=== PATIENT | male | born 1945 | race Caucasian/White ===

== ENCOUNTER 2024-07-03 09:28 | Day surgery (SDC) | payer MEDICARE, SELFPAY ==
[2024-06-27 12:11] VITALS: BMI 26.3
[2024-07-03 09:58] VITALS: BP 155/105; PULSE 49; RESP 15; TEMP 36.7; O2SAT 98
--- NOTE | 2024-07-03 10:10 | HO.ANESPROP2 ---
Documented by User: Huyen Snow NP 06/29/24 14:45 HPI - Anesthesia Eval Consult details Narrative: 79yo M for Right Cataract Extraction IOL Insertion, Trabeculectomy No previous on record Eliquis for afib PMFSH Past Medical History Medical History (Updated 06/27/24 @ 12:07 by Akua Salazar RN) TIA (transient ischemic attack) Neuropathy of foot PAF (paroxysmal atrial fibrillation) HTN (hypertension) Hyperlipidemia Wears hearing aid Gout Chronic renal insufficiency BPH (benign prostatic hyperplasia) Barretts esophagus AAA (abdominal aortic aneurysm) without rupture Surgical History Surgical History (Updated 06/27/24 @ 12:06 by Akua Salazar RN) Hx of kidney transplant H/O colonoscopy Social History Social History Patient Tobacco Use Status: Former Tobacco user Tobacco use type: Cigarette Use of substances other than those prescribed or required for medical reasons: No Congregational Healthcare Practices: [facility] Advance Directives: No (unknown) Advance Directives Information Provided: Yes Nutrition Risks: Surgical patient >75years Meds Allergies Allergy/AdvReac Type Severity Reaction Status Date / Time meperidine [Demerol] Allergy Intermediate Itching Verified 06/27/24 12:11 Home Medications ?Medication ?Instructions ?Recorded ?Confirmed ?Last Taken ?Type amlodipine 5 mg tablet 10 mg PO DAILY 06/27/24 06/27/24 07/03/24 08:30 History apixaban 5 mg tablet (Eliquis) 5 mg PO BID 06/27/24 06/27/24 07/03/24 08:30 History atorvastatin 20 mg tablet 20 mg PO DAILY 06/27/24 06/27/24 Unknown History cholecalciferol (vitamin D3) 50 50 mcg PO DAILY 06/27/24 06/27/24 Unknown History mcg (2,000 unit) capsule (Vitamin D3) cinacalcet 30 mg tablet 60 mg PO DAILY 06/27/24 06/27/24 07/03/24 08:30 History metoprolol succinate 25 mg 50 mg PO DAILY 06/27/24 06/27/24 Unknown History tablet,extended release 24 hr ropinirole 1 mg tablet 1 mg PO BEDTIME 06/27/24 06/27/24 Unknown History sildenafil 100 mg tablet 100 mg PO DAILY PRN Erectile 06/27/24 06/27/24 Unknown History Dysfunction spironolactone 25 mg tablet 25 mg PO QAM 06/27/24 06/27/24 Unknown History tacrolimus 1 mg capsule, 1 mg PO BID 06/27/24 06/27/24 07/03/24 08:30 History immediate-release tamsulosin 0.4 mg capsule 0.4 mg PO DAILY 06/27/24 06/27/24 Unknown History trazodone 50 mg tablet 50 mg PO BEDTIME 06/27/24 06/27/24 Unknown History empagliflozin 10 mg tablet 10 mg PO DAILY 06/30/24 06/30/24 06/29/24 History (Jardiance) Exam Height,Weight and Vital Signs: Height 5 ft 11.77 in Weight 87.5 kg Assessment and Plan Assessment Anesthesia Assessment: Chart Reviewed Documented by User: Ambar Downing DO 07/03/24 10:24 [facility] Past Medical History Medical History (Updated 06/27/24 @ 12:07 by Akua Salazar RN) TIA (transient ischemic attack) Neuropathy of foot PAF (paroxysmal atrial fibrillation) HTN (hypertension) Hyperlipidemia Wears hearing aid Gout Chronic renal insufficiency BPH (benign prostatic hyperplasia) Barretts esophagus AAA (abdominal aortic aneurysm) without rupture Family History Family history of problems with anesthesia: No Surgical History Surgical History (Updated 06/27/24 @ 12:06 by Akua Salazar RN) Hx of kidney transplant H/O colonoscopy History of Problems with Anesthesia: No Social History Social History Patient Tobacco Use Status: Former Tobacco user Tobacco use type: Cigarette Use of substances other than those prescribed or required for medical reasons: No [facility]regational Healthcare Practices: [facility] Advance Directives: No (unknown) Advance Directives Information Provided: Yes Nutrition Risks: Surgical patient >75years Meds Allergies Allergy/AdvReac Type Severity Reaction Status Date / Time meperidine [Demerol] Allergy Intermediate Itching Verified 06/27/24 12:11 Home Medications ?Medication ?Instructions ?Recorded ?Confirmed ?Last Taken ?Type amlodipine 5 mg tablet 10 mg PO DAILY 06/27/24 06/27/24 07/03/24 08:30 History apixaban 5 mg tablet (Eliquis) 5 mg PO BID 06/27/24 06/27/24 07/03/24 08:30 History atorvastatin 20 mg tablet 20 mg PO DAILY 06/27/24 06/27/24 Unknown History cholecalciferol (vitamin D3) 50 50 mcg PO DAILY 06/27/24 06/27/24 Unknown History mcg (2,000 unit) capsule (Vitamin D3) cinacalcet 30 mg tablet 60 mg PO DAILY 06/27/24 06/27/24 07/03/24 08:30 History metoprolol succinate 25 mg 50 mg PO DAILY 06/27/24 06/27/24 Unknown History tablet,extended release 24 hr ropinirole 1 mg tablet 1 mg PO BEDTIME 06/27/24 06/27/24 Unknown History sildenafil 100 mg tablet 100 mg PO DAILY PRN Erectile 06/27/24 06/27/24 Unknown History Dysfunction spironolactone 25 mg tablet 25 mg PO QAM 06/27/24 06/27/24 Unknown History tacrolimus 1 mg capsule, 1 mg PO BID 06/27/24 06/27/24 07/03/24 08:30 History immediate-release tamsulosin 0.4 mg capsule 0.4 mg PO DAILY 06/27/24 06/27/24 Unknown History trazodone 50 mg tablet 50 mg PO BEDTIME 06/27/24 06/27/24 Unknown History empagliflozin 10 mg tablet 10 mg PO DAILY 06/30/24 06/30/24 06/29/24 History (Jardiance) Exam Exam Date and Time: 07/03/24 1010 Height,Weight and Vital Signs: Height 5 ft 11.77 in Weight 87.5 kg Vital Signs Temperature 98.0 F 07/03/24 09:58 Pulse Rate 49 L 07/03/24 09:58 Respiratory Rate 15 07/03/24 09:58 Blood Pressure 155/105 H 07/03/24 09:58 Pulse Oximetry 98 07/03/24 09:58 Oxygen Delivery Method Room Air 07/03/24 09:58 Temperature 98.0 F 07/03/24 09:58 Pulse Rate 49 L 07/03/24 09:58 Respiratory Rate 15 07/03/24 09:58 Blood Pressure 155/105 H 07/03/24 09:58 Pulse Oximetry 98 07/03/24 09:58 Oxygen Delivery Method Room Air 07/03/24 09:58 Airway Mallampati Class: II TM Dist: >3cm Neck ROM: Full Partial: Upper (bridge; not removeable) Heart: S1S2 Lungs: CTAB Assessment and Plan Assessment Anesthesia Assessment: Anesthesia Plan Discussed and Chart Reviewed Final Anesthetic Review Family History of Problems with Anesthesia: No History of Problems with Anesthesia: No NPO: Yes ASA Class: II Final Preanesthetic Review: No Changes in Pt Med Stat, Meds/Allgs Chart Reviewed, Consent Obtained/Reviewed and Anes Risks/Benef Reviewed Patient Risk: Low Procedure Risk: Low Anesthetic Plan Anesthetic Plan: MAC: and Agree w/ Assess. and Plan Disposition: Standard PACU
[2024-07-03] MEDS: Tetracaine HCl/PF 0.5% Oph Sol 4 ML DROPS 1 DROP EYE-RIGHT (10:14)
[2024-07-03] MEDS: Cyclopentolate 1 % Ophth Sol 2 ML DRPBTL 1 DROP EYE-RIGHT ×3 (10:16→10:28)
[2024-07-03] MEDS: Tropicamide 1 % Ophth Sol 3 ML BTL 1 DROP EYE-RIGHT ×3 (10:17→10:30)
[2024-07-03] MEDS: Ketorolac Tromethamine 0.5% Op 5 ML DROPS 1 DROP EYE-RIGHT ×3 (10:19→10:31)
[2024-07-03] MEDS: Phenylephrine HCL 2.5% Oph SoL 2 ML BOTTLE 1 DROP EYE-RIGHT ×3 (10:20→10:33)
[2024-07-03] MEDS: Lactated Ringers 500 ML 50 ML IV (10:27)
--- NOTE | 2024-07-03 11:31 | MHC.SHP ---
Pre-Procedural Eval Section A - 24 Hr Update-Section A only Date of Service: 07/03/24 The patient is an INPATIENT: No Changes since office visit: No Cold of Flu in the past 2 weeks, No New Medical Problems, No Changes in Medication and No Patient answered all questions The patient has been examined within 24 hours of the surgical procedure. The History & Physical has been completed within 30 days and I have reviewed it.: Yes Section B - Complete if H&P > 30 days Chief Complaint: Primary open-angle glaucoma, R eye, mild stage Allergies: Allergies Allergy/AdvReac Type Severity Reaction Status Date / Time meperidine [Demerol] Allergy Intermediate Itching Verified 07/03/24 10:36 Plan Diagnosis/Plan: Unchanged I have reviewed the history and physical and performed a pertinent physical examination on my patient. No changes have occurred unless specified. Time Spent With Patient Time: Total time managing care of this patient today ____ minutes.
--- NOTE | 2024-07-03 11:32 | HO.PNOPHT ---
Ophthalmology Procedure Procedure Date of Service: 07/03/24 Ophthalmology Viscoelastic: Healon Duet Dual Pack Pro Ophthalmology Lenses: IOL Acrysof MP - [id number] (17.5) Procedure Notes: PREOPERATIVE DIAGNOSIS: Decreased visual acuity right eye secondary to cataract and glaucoma. POSTOPERATIVE DIAGNOSIS: Same PROCEDURE: Right cataract extraction with intraocular lens insertion and trabeculectomy, right eye SURGEON: Andrew Nowak M.D. ANESTHESIA: Topical/MAC ESTIMATED BLOOD LOSS: None COMPLICATIONS: None After obtaining informed consent, the patient was brought to the operating room suite and placed in the supine position. After adequate sedation per anesthesia, topical drops of Tetracaine were given to the right eye. The eye was then prepped and draped in the usual sterile fashion. The operating room microscope was then positioned over the right eye and a lid speculum placed. 2% Lidocaine was instilled subconjunctivally. After awaiting 30 seconds, a paracentesis was created superiorly. Hemostasis was then achieved using wet field cautery. Mitomycin .4mg/ml was then placed in the conjunctival pocket and held in place for two minutes. The subconjunctival pocket was then irrigated copiously with 20 mls of BSS. Paracentesis was then created. Viscoelastic was then instilled into the anterior chamber. A crescent blade was then utilized to create a partial thickness sclera wound followed by advancement to clear cornea with the crescent blade. A keratome was then utilized to enter the anterior chamber. Capsulotomy forceps were then utilized to create a continuous circular tear capsulotomy. Hydrodissection and hydrodelineation were carried out until adequate mobilization of the nucleus occurred. Phacoemulsification was utilized to remove the dense central nucleus followed by removal of remnant cortical material utilizing the automated aspiration irrigation unit. Viscoelastic was then instilled into the posterior capsular bag followed by placement of a posterior chamber intraocular lens. Attention was then directed to create a trabeculectomy. A Emilia punch was then utilized to create the trabeculectomy. The residual Viscoelastic was then removed utilizing the automated IA machine. The egress of aqueous was evaluated and found to be appropriate. The conjunctiva was then closed with a 9-0 vicryl suture. BSS was then instilled into the anterior chamber creating a superior bleb, without obvious leakage. Intracameral injection of Vigamox 0.3%, 0.1 ml and subtenon injection of Kenalog-40 0.2 ml was given followed by an atropine drop. The patient tolerated the procedure well and will be followed up in the a.m.
[2024-07-03 12:27] VITALS: BP 133/90; PULSE 62; RESP 16; TEMP 36.4; O2SAT 99
== END 2024-07-03 12:37 | disposition home or self-care (01) ==
PROVIDERS: PCP Internal Medicine; Visit Provider Ophthalmology
PROC: (CPT 66985; principal; 2024-07-03 12:00)
PROC: (CPT 66170; 2024-07-03 12:00)
DX: H25.11 Age-related nuclear cataract, right eye (principal); H40.1111 Primary open-angle glaucoma, right eye, mild stage; I12.9 Hypertensive chronic kidney disease with stage 1 through stage 4 chronic kidney disease, or unspecified chronic kidney disease; N18.4 Chronic kidney disease, stage 4 (severe); Z99.2 Dependence on renal dialysis; Z94.0 Kidney transplant status; H11.153 Pinguecula, bilateral; I48.0 Paroxysmal atrial fibrillation; I71.40 Abdominal aortic aneurysm, without rupture, unspecified; E78.00 Pure hypercholesterolemia, unspecified; N40.0 Benign prostatic hyperplasia without lower urinary tract symptoms; Z86.73 Personal history of transient ischemic attack (TIA), and cerebral infarction without residual deficits; Z79.01 Long term (current) use of anticoagulants; Z79.899 Other long term (current) drug therapy; Z88.5 Allergy status to narcotic agent; Z87.891 Personal history of nicotine dependence
CPT/HCPCS: 66984; 66170; J2004; J2250; J3010; J3301; J7315; V2630

== ENCOUNTER 2024-07-10 09:09 | Day surgery (SDC) | payer MEDICARE, SELFPAY ==
--- OUTSIDE RECORDS SUMMARY | 2024-07-07 13:24 | XMS_ITS | Clinical Summary ---
Author Organization [facility] 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 Role Phone Maria Victoria Landry MD Primary Care Provide r Allergies Active Allergy Reactions Criticality Noted Date Comments Meperidine Hives,Itching High 07/25/2019 Other reaction(s): ITCHY Medications Eliquis 5 MG tablet Take 5 mg by mouth 2 (two) times a day 09/24/19 22 Active brimonidine (ALPHAGAN) 0.2 % ophthalmic solution Administer 1 drop into affected eye(s) 04/13/19 20 Active cholecalciferol (VITAMIN D-3) 50 MCG (1999) capsule Take 50 mcg by mouth 03/15/20 23 Active amiodarone (PACERONE) 200 MG tabletIndications:Video Game Designer sravani atrial fibrillation, not otherwise specified (HCC) Take 1 tablet (200 mg total) by mouth 1 (one) time each day 30 tablet 11 04/26/19 24 Active tamsulosin (FLOMAX) 0.4 MG 24 hr capsule Take 1 capsule (0.4 mg total) by mouth 1 (one) time each day 180 capsule 1 11/17/19 24 Active atorvastatin (Lipitor) 20 MG tablet Take 1 tablet (20 mg total) by mouth 1 (one) time each day 90 tablet 3 11/17/19 24 025 Active cinacalcet (SENSIPAR) 30 MG tabletIndications:Seco ndary hyperparathyroidism of renal origin (HCC) Take 2 tablets (60 mg total) by mouth 1 (one) time each day 60 tablet 11 01/19/20 24 025 Active rOPINIRole (REQUIP) 1 MG tabletIndications:Rest less Leg Syndrome TAKE 1 TABLET (1 MG TOTAL) BY MOUTH EVERY NIGHT 90 tablet 1 02/10/20 24 025 Active tacrolimus (PROGRAF) 1 MG capsule TAKE ONE CAPSULE BY MOUTH EVERY MORNING AND EVERY EVENING 180 capsule 11 02/10/20 24 Active spironolactone (ALDACTONE) 25 MG tablet TAKE 1/2 TABLET BY MOUTH ONCE DAILY 45 tablet 11 03/17/20 24 Active traZODone (DESYREL) 50 MG tablet Take 1 tablet (50 mg total) by mouth every night 60 tablet 03/27/20 24 Active amLODIPine (Norvasc) 5 MG tablet Take 2 tablets (10 mg total) by mouth 1 (one) time each day 180 tablet 3 05/05/19 25 026 Active metoprolol succinate XL (TOPROL XL) 25 MG 24 hr tabletIndications:Hype rtensive disorder TAKE 1 TABLET BY MOUTH ONCE A DAY 90 tablet 05/12/19 25 Active Jardiance 10 MG tabletIndications:Video Game Designer sravani kidney disease, stage 4 (severe) ([facility]),Persistent proteinuria Take 10 mg by mouth 1 (one) time each day in the morning 30 tablet 5 06/07/19 25 025 Active Active Problems Problem Noted Date Diagnosed Date Chronic kidney disease, stage 4 (severe) 024 Does use hearing aid 03/01/2023 03/01/2023 Abdominal aortic aneurysm without rupture 202203/01/2023 Overview (03/01/2023): Per Vascular Surgery notes infrarenal abdominal aortic aneurysm unchanged by duplex imaging (03/31/21) Per Vascular Surgery notes infrarenal abdominal aortic aneurysm unchanged by duplex imaging (03/31/21) Seasonal allergy 03/01/2023 03/01/2023 Impaired left ventricular function 03/01/2023 03/01/2023 Hypomagnesemia 02/16/2023 Restless legs syndrome (RLS) 11/10/2022 Kidney replaced by transplant 09/07/2022 Kidney transplant status 06/10/2022 023 Anaphylactic shock, unspecified, initial encount er 04/24/2022 03/01/2023 Atrial fibrillation 10/13/2021 Ventura's esophagus 10/09/2021 Benign prostatic hyperplasia 10/09/2021 Polyp of colon 10/09/2021 Hypertensive disorder 07/19/2020 Proteinuria 07/25/2019 Multiple congenital cysts of kidney 07/25/2019 Iron deficiency anemia 07/25/2019 Hyperlipidemia 07/25/2019 Gout 07/25/2019 Hypertensive renal disease 07/25/2019 Backache 07/25/2019 Anemia in chronic kidney disease 07/25/2019 Cellulitis of left upper limb 12/17/2017 Localized edema 07/28/2017 Coagulation defect 05/19/2017 Sequelae of cerebrovascular disease 05/18/2017 Secondary hyperparathyroidism 05/18/2017 Pruritus 05/18/2017 Other abnormal auditory perceptions, unspecified ear 05/18/2017 Osteoarthritis 05/18/2017 Hypokalemia 05/18/2017 Dyspnea 05/18/2017 Benign neoplasm of prostate 05/18/2017 Idiopathic chronic gout, uns pecified wrist, without tophus (tophi) 05/18/2017 Resolved Problems Problem Noted Date Diagnosed Date Resolved Date Dependence on hemodialysis d ue to end stage renal disease 10/09/2021 09/07/2022 Overview (10/09/2021): tues, thurs, sat and sun at home 3 hours 15 mins . Dependence on renal dialysis 07/19/2020 09/07/2022 Hypercalcemia 08/17/2019 09/23/2022 End stage renal disease 07/25/201909/04 Encounters Date Type Department Care Team Description 06/30/2024 10:30 AM EDT Office [facility] [address] [phone] Sylvester Huang MD Kidney transplant status (Primary Dx) 06/30/2024 Orders Only [facility] [address] [phone] Sylvester Huang MD Kidney transplant status 06/21/2024 Office Communication [facility] [address] [phone] Rose Mary Ansari 06/20/2024 Orders Only [facility] [address] [phone] Sylvester Huang MD 06/06/2024 3:45 PM EST Office [facility] [address] [phone] Brittnee Navarrete ARNP Chronic kidney disease, stage 4 (severe) (HCC) (Primary Dx); Anemia in chronic kidney disease; Kidney transplant status; Hypertensive disorder; Persistent proteinuria 06/02/2024 Orders Only [facility] [address] [phone] Sylvester Huang MD Kidney transplant status 05/11/2024 Refill [facility] [address] [phone] Jasper Enriquez MD Hypertensive disorder 05/05/2024 9:00 AM EST Office [facility] [address] [phone] Sylvester Huang MD Kidney transplant status (Primary Dx) 05/05/2024 Office Communication [facility] [address] [phone] Sylvesetr Huang MD from Last 3 Months Immunizations Name Administration Dates Next Due Influenza Split High Dose Pr eservative Free IM 01/30/2020 Influenza, Quadrivalent, With Preservative 02/09 Moderna SARS-COV-2 02/13/2021,05/23/2020, 021 Pneumococcal Conjugate 13-Valent 02/06/2019 Pneumococcal Polysaccharide 03/07/2020, 8 Td, Unspecified 11/27/2011 Tdap 04/11/2019 Family History Medical History Relation Comments Autosomal Dominant Polycystic Kidney Disease Mot her Diabetes Mother Hypertension Mother Kidney disease Mother Stroke Mother Relation Status Comments Father Mother Social History Tobacco Use Types Packs/Day Years Used Date Smoking Tobacco: Former Smokeless Tobacco: Never Alcohol Use Standard Drinks/Week Comments Yes 0 (1 standard drink = 0.6 oz pure alcohol) Alcoholic Drinks/day: Occasional social drink AUDIT-C Answer Date Recorded Q1: How often do you have a drink containing alc ohol? Never 07/27/2019 Average Number of Drinks Not on file 020 Frequency of Binge Drinking Not on file 07/05 Sex and Gender Information Value Date Recorded Sex Assigned at Not on file Legal Sex Male 5:11 PM EST Gender Identity Not on file Sexual Orientation Not on file Last Filed Vital Signs Vital Sign Reading Time Taken Comments Blood Pressure 130/68 06/30/2024 10:35 AM EDT Pulse 60 06/30/2024 10:35 AM EDT Temperature 36.4 ??C (97.5 ??F) 04/12/2023 9:35 AM ES T Respiratory Rate 16 10/13/2021 9:45 AM EDT Oxygen Saturation 98% 03/27/2024 10:27 AM EST Inhaled Oxygen Concentration - - Weight 86.2 kg (190 lb) 06/30/2024 10:35 AM EDT Height 185.4 cm (6' 1 ) 04/12/2023 9:35 AM EST Body Mass Index 25.07 04/12/2023 9:35 AM EST Plan of Treatment Upcoming Encounters Date Type Department Care Team (Late st Contact Info) Description 09/26/2024 9:15 AM EDT Office Visit [facility] [address] [phone] Sylvester Huang MD [address] [phone] Health Maintenance Due Date Last Done Comments Influenza Vaccine (#1) 2023 0, 02/10/2016 Pneumococcal Vaccine: 65+ Years Completed 03/07/2020, 02/06/2019, 06/12/2017 Hepatitis B Vaccine Aged Out No longe r eligible based on patient's age to complete this topic Procedures Procedure Name Priority Date/Time Associated Diagnosis Comments URINE ALBUMIN / CREATININE RATIO Routine 06/20/2024 9:37 AM EDT PROTEIN / CREATININE RATIO, URINE Routine 06/20/2024 9:37 AM EDT MAGNESIUM Routine 06/20/2024 9:37 AM EDT PHOSPHATE ( PHOSPHORUS) Routine 06/20/2024 9:37 AM EDT TACROLIMUS, HIGHLY SENSITIVE, LC/MS/MS Routine 06/20/2024 9:37 AM EDT URINALYSIS WITH MICROSCOPIC Routine 06/20/2024 9:37 AM EDT CBC AND DIFFERENTIAL Routine 06/20/2024 9:37 AM EDT BMP7+ANION GAP Routine 06/20/2024 9:37 AM EDT MICROSCOPIC EXAMINATION - DO NOT USE Routine 06/20/2024 9:37 AM EDT TACROLIMUS LEVEL Routine 05/08/2024 9:28 AM EST Kidney transplant status MAGNESIUM Routine 05/08/2024 9:28 AM EST Kidney transplant status CBC Routine 05/08/2024 9:28 AM EST Kidney transplant status VITAMIN D 25 HYDROXY Routine 05/08/2024 9:28 AM EST Kidney transplant status PROTEIN / CREATININE RATIO, URINE Routine 05/08/2024 9:28 AM EST Kidney transplant status URINE ALBUMIN / CREATININE RATIO Routine 05/08/2024 9:28 AM EST Kidney transplant status URINALYSIS WITH MICROSCOPIC Routine 05/08/2024 9:28 AM EST Kidney transplant status RENAL FUNCTION PANEL Routine 05/08/2024 9:28 AM EST Kidney transplant status PTH, INTACT Routine 05/08/2024 9:28 AM EST Kidney transplant status MICROSCOPIC EXAMINATION - DO NOT USE Routine 05/08/2024 9:28 AM EST CMV DNA, QUANTITATIVE, PCR Routine 05/08/2024 9:27 AM EST Kidney transplant status BK VIRUS, DNA, QUANTITATIVE Routine 05/08/2024 9:27 AM EST Kidney transplant status VITAMIN D 25 HYDROXY Routine 05/08/2024 9:27 AM EST Kidney transplant status PTH, INTACT Routine 05/08/2024 9:27 AM EST Kidney transplant status IRON PANEL (FE, TIBC, TSAT) Routine 05/08/2024 9:27 AM EST Kidney transplant status URIC ACID Routine 05/08/2024 9:27 AM EST Kidney transplant status FERRITIN Routine 05/08/2024 9:27 AM EST Kidney transplant status HEMOGLOBIN A1C Routine 05/08/2024 9:27 AM EST Kidney transplant status PHOSPHATE ( PHOSPHORUS) Routine 05/08/2024 9:27 AM EST Kidney transplant status MAGNESIUM Routine 05/08/2024 9:27 AM EST Kidney transplant status URINE ALBUMIN / CREATININE RATIO Routine 05/08/2024 9:27 AM EST Kidney transplant status PROTEIN / CREATININE RATIO, URINE Routine 05/08/2024 9:27 AM EST Kidney transplant status URINALYSIS WITH MICROSCOPIC Routine 05/08/2024 9:27 AM EST Kidney transplant status BASIC METABOLIC PANEL Routine 05/08/2024 9:27 AM EST Kidney transplant status CBC AND DIFFERENTIAL Routine 05/08/2024 9:27 AM EST Kidney transplant status TACROLIMUS LEVEL Routine 05/08/2024 9:27 AM EST Kidney transplant status MICROSCOPIC EXAMINATION - DO NOT USE Routine 05/08/2024 9:27 AM EST from Last 3 Months Results * (ABNORMAL) BMP7+Anion Gap (06/20/2024 9:37 AM EDT) Glucose 96 70 - 99 mg/dL [facility] BUN 30(H) 8 - 23 mg/dL [facility] Creatinine 2.42(H) 0.7 - 1.2 mg/dL [facility] eGFR CKD-EPI CR 2020 27 mL/min/1.7 3 [facility] Comment: Creatinine based estimated glomerular filtration (eGFR) in adults is calculated using the National Kidney Foundation recommended 2020 CKD-EPI equation. Estimates GFR from serum creatinine, age and sex. Sodium 141 133 - 145 mmol/L [facility] Potassium 4.7 3.6 - 5.2 mmol/L [facility] Chloride 106 98 - 107 mmol/L [facility] Bicarbonate (CO2) 20(L) 22 - 29 mmol/L [facility] Anion Gap 15 4 - 17 mmol/L [facility] Calcium 8.7 8.6 - 10.5 mg/dL [facility] 06/20/2024 9:37 AM EDT 06/20/2024 us Sylvester Huang MD LAB BLOOD ORDERABLES Final Result [facility] [address] [place] [address] * Tacrolimus, Highly Sensitive, LC/MS/MS (06/20/2024 9:37 AM EDT) Tacrolimus by Immunoassay 16.9 5 - 20 NG/ML [facility] Comment: Tacrolimus Renal transplant patients (C0-trough level*): 0 - 3 months, 10 - 15 ng/mL: >3 - 12 months, 5 - 15 ng/mL: >12 months: 5 - 10 ng/mL (assuming no induction, mTOR inhibitor or IL-2 receptor antibody therapy) *Disclaimer: The target therapeutic ranges given here are a general guide and exact ranges may differ according to therapeutic indication. Please refer appropriate professional body guidance documents and references cited below. Yaz T, Jose Enrique C, Jorden N, et al Randomized trial of tacrolimus + mycophenolate mofetil or azathioprine versus cyclosporine + mycophenolate mofetil after cadaveric kidney transplantation: Results at three years Transplantation. 2003,75:2048-53. Mary Y, van Candace DUARTE, Scout DUARTE, et al Minimization of immunosuppressive therapy after renal transplantation: Results of a randomized controlled trial Am J Transplant. 2005,5:87-95. Héctor FG, Jona H, Jan DUARTE, et al. Comparison of low versus high tacrolimus levels in kidney transplantation: Assessment of efficacy by protocol biopsies Transplantation. 2007,83:411-6. Karla P, Fang VW, Brandan M, et al Opportunities to optimize tacrolimus therapy in solid organ transplantation: Report of the consensus conference Ther Drug Monit. 2009,31:139-52. Juan Gomez, Kris Gomez., Patricia, T.L.H. et al. Higher tacrolimus trough levels and time in the therapeutic range are associated with the risk of acute rejection in the first month after renal transplantation. [facility] 2022,24, 131. 06/20/2024 9:37 AM EDT 06/20/2024 us Sylvester Huang MD LAB BLOOD ORDERABLES Final Result [facility] [address] [place] [address] * Microscopic Examination (06/20/2024 9:37 AM EDT) Only the most recent of3 resultswithin the time period is included. Squamous Epithelial, Urine Comment [facility] Comment:MICROSCOPIC PERFORME D 06/20/2024 9:37 AM EDT 06/20/2024 Sylvester Huang MD LAB MICROBIOLOGY - GE NERAL ORDERABLES Final Result Performing Organization Address [facility] Co de Phone Number [facility] [address] [place] [address] * (ABNORMAL) Protein, Total, Random Urine w/Creatinine (Protein/Creat Ratio) (06/20/2024 9:37 AM EDT) Only the most recent of3 resultswithin the time period is included. Creatinine, Ur 152.7 Not Estab. mg/dL [facility] Protein, Ur 73.6 Not Estab. mg/dL [facility] Urine Protein/Creati nine Ratio 482(H) 0 - 200 mg/g creat [facility] 06/20/2024 9:37 AM EDT 06/20/2024 Sylvester Huang MD LAB URINE ORDERABLES Final Result Performing Organization Address City/[facility]/ZIP Co de Phone Number [facility] [address] [place] [address] * (ABNORMAL) Urine Albumin / Creatinine Ratio (06/20/2024 9:37 AM EDT) Only the most recent of3 resultswithin the time period is included. Albumin, Urine 269.1 Not Estab. ug/mL [facility] Albumin/Creatin ine Ratio 176(H) 0 - 29 mg/g creat [facility] Comment: ? Normal: ?0 - ??29 ? Moderately increased: 30 - 300 ? Severely increased: ? >300 06/20/2024 9:37 AM EDT 06/20/2024 Sylvester Huang MD LAB URINE ORDERABLES Final Result [facility] [address] [place] [address] * (ABNORMAL) Urinalysis with microscopic (06/20/2024 9:37 AM EDT) Only the most recent of3 resultswithin the time period is included. Specific [place], Urine 1.024 1.002 - 1.030 [facility] pH Urine 5.5 5.0 - 8.0 [facility] ([facility])[phone] Appearance Urine YELLOW [facility] ([facility])[phone] Comment:CLEAR WBC Esterase Urine 2+(A) NEGATIVE [facility] ([facility])[phone] Protein, Ur 1+(A) NEGATIVE [facility] ([facility])[phone] Glucose, Ur 4+(A) NEGATIVE [facility] Ketones, Urine Negative NEGATIVE [facility] ([facility])[phone] Blood Urine 1+(A) NEGATIVE [facility] ([facility])[phone] Bilirubin Urine Negative NEGATIVE [facility] ([facility])[phone] Urobilinogen Urine NORMAL NORMAL mg/dL [facility] Nitrite, Urine Negative NEGATIVE [facility] [phone] Microscopic Examination Comment [facility] [phone] Comment: MICROSCOPIC PERFORMED URINE WBCs ? 32 ? /HPF ? 0-5 ?H URINE RBCs ? 1 ?/HPF ? 0-3 ?N BACTERIA ? MODERATE ? HPF ?NEGATIVE ?? A MUCUS ?SLIGHT ? /LPF ?N BUDDING YEAST ?SLIGHT ? /HPF ?N HYPHENATED YEAST ? SLIGHT ? /HPF ?N 06/20/2024 9:37 AM EDT 06/20/2024 us Sylvester Huang MD LAB URINE ORDERABLES Final Result [facility] [address] [place] [address] * (ABNORMAL) CBC and Differential (06/20/2024 9:37 AM EDT) Only the most recent of2 resultswithin the time period is included. WBC 7.5 4.0 - 11.0 x10E3/uL [facility] RBC 4.95 4.70 - 6.10 x10E6/uL [facility] Hemoglobin 14.7 13.7 - 17.1 g/dL [facility] Hematocrit 45.4 40.5 - 50.0 % [facility] MCV 91.7 80.0 - 94.0 fL [facility] MCH 29.7 27.0 - 34.0 pg [facility] MCHC 32.4(L) 33.0 - 37.0 g/dL [facility] RDW 48.2(H) <47.0 % [facility] Platelets 184 150 - 460 x10E3/uL [facility] Neutrophils Relative 70.4 44 - 76 % [facility] Lymphocytes Relative 16.6 15 - 43 % [facility] Monocytes 9.6 4.5 - 10.5 % [facility] Eosinophils Relative 2.0 0 - 6 % [facility] Basophils Relative 0.7 0 - 2 % [facility] Neutrophils Absolute 5.3 1.3 - 7.0 x10E3/uL [facility] Lymphocytes Absolute 1.2 0.8 - 3.1 x10E3/uL [facility] Monocytes Absolute 0.7 0.4 - 1.3 x10E3/uL [facility] Eosinophils Absolute 0.2 0.0 - 0.4 x10E3/uL [facility] Basophils Absolute 0.1 0.0 - 0.1 x10E3/uL [facility] Immature Granulocytes 0.7 % [facility] Immature Grans (Absolute) 0.1 x10E3/uL [facility] nRBC Count 0.0 % [facility] Comment: Comment [facility] Comment: AUTOMATED DIFFERENTIAL MPV ?10.6 ? [place] ? 9.4-12.4 ?? N ABS. NRBC ?0.0 ?K/MM3 ? N 06/20/2024 9:37 AM EDT 06/20/2024 us Sylvester Huang MD LAB BLOOD ORDERABLES Final Result Performing Organization Address [facility] de Phone Number [facility] [address] [place] [address] * (ABNORMAL) Phosphorus (06/20/2024 9:37 AM EDT) Only the most recent of2 resultswithin the time period is included. Phosphorus 2.4(L) 2.5 - 4.5 mg/dL [facility] 06/20/2024 9:37 AM EDT 06/20/2024 us Sylvester Huang MD LAB BLOOD ORDERABLES Final Result Performing Organization Address [facility] de Phone Number [facility] [address] [place] [address] * Magnesium (06/20/2024 9:37 AM EDT) Only the most recent of3 resultswithin the time period is included. Magnesium 1.8 1.6 - 2.3 mg/dL [facility] 06/20/2024 9:37 AM EDT 06/20/2024 Sylvester Huang MD LAB BLOOD ORDERABLES Final Result Performing Organization Address [facility] Co de Phone Number [facility] [place] [address] * Tacrolimus level (05/08/2024 9:28 AM EST) Only the most recent of2 resultswithin the time period is included. [facility] Tacrolimus Lvl 6.0 5.0 - 20.0 ng/mL [facility] Comment: Target steady state trough concentration for Tacrolimus varies based on type of organ transplant immunosuppressive protocol and other patient specific factors. ??Tacrolimus trough concentrations should be interpreted in conjunction with clinical assessments of rejection and tolerability. ??Values obtained with different assay methods cannot be used interchangeably due to differences in assay methods and cross-reactivty with metabolites, nor should correction factors be applied. ??Therefore, consistent use of one assay for individual patients is recommended. Detection Limit = 0.5 ng/mL Performed by LC-MS/MS technology ?Please note reference interval change Blood (Blood, Venous) 05/08/2024 9:28 AM EST 05/08/2024 Narrative [facility] - 05/10/2024 3:06 PM EST Test(s) [id number] ([id number]), Blood was developed and its performance characteristics determined by [employer]. It has not been cleared or approved by the Food and Drug Administration. Jasper Enriquez MD LAB BLOOD ORDERABLES Final Re sult Performing Organization Address City/[facility]/ZIP Co de Phone Number [facility] [place] [place] [address] * Vitamin D 25 Hydroxy (05/08/2024 9:28 AM EST) Only the most recent of2 resultswithin the time period is included. Vitamin D, 25-OH, Total 39.6 30.0 - 100.0 ng/mL [facility] Comment: Vitamin D deficiency has been defined by the [place] [employer] and an Endocrine Society practice guideline as a level of serum 25-OH vitamin D less than 20 ng/mL (1,2). The Endocrine Society went on to further define vitamin D insufficiency as a level between 21 and 29 ng/mL (2). 1. IOM ([place] [employer]). 2010. Dietary reference ?? intakes for calcium and D. [place]: The ?? National [employer] [place] [employer]. 2. Annie MF, Josias LOERA, Alin EVANS, et al. ?? Evaluation, treatment, and prevention of vitamin D ?? deficiency: an Endocrine Society clinical practice ?? guideline. JCEM. 2010; 96(7):1911-30. Blood (Blood, Venous) 05/08/2024 9:28 AM EST 05/08/2024 us Jasper Enriquez MD LAB BLOOD ORDERABLES Final Re sult [facility] [address] [place] [address] * CBC (05/08/2024 9:28 AM EST) WBC 7.0 3.4 - 10.8 x10E3/uL [facility] RBC 4.77 4.14 - 5.80 x10E6/uL [facility] Hemoglobin 14.3 13.0 - 17.7 g/dL [facility] Hematocrit 43.8 37.5 - 51.0 % [facility] MCV 92 79 - 97 fL [facility] MCH 30.0 26.6 - 33.0 pg [facility] MCHC 32.6 31.5 - 35.7 g/dL [facility] RDW 12.7 11.6 - 15.4 % [facility] Platelets 190 150 - 450 x10E3/uL [facility] Blood (Blood, Venous) 05/08/2024 9:28 AM EST 05/08/2024 Jasper Enriquez MD LAB BLOOD ORDERABLES Final Re sult Performing Organization Address City/[facility]/ZIP Co de Phone Number [facility] [address] [place] [address] * (ABNORMAL) PTH, Intact (05/08/2024 9:28 AM EST) Only the most recent of2 resultswithin the time period is included. PTH 192(H) 15 - 65 pg/mL [facility] Blood (Blood, Venous) 05/08/2024 9:28 AM EST 05/08/2024 Jasper Enriquez MD LAB BLOOD ORDERABLES Final Re sult Performing Organization Address [facility]/ZIP Co de Phone Number [facility] [address] [place] [address] * (ABNORMAL) Renal Function Panel (05/08/2024 9:28 AM EST) Glucose 97 70 - 99 mg/dL [facility] BUN 34(H) 8 - 27 mg/dL [facility] Creatinine 2.10(H) 0.76 - 1.27 mg/dL [facility] eGFR CKD-EPI CR 2020 32(L) >59 mL/min/1.7 3 [facility] BUN/Creatinine Ratio 16 10 - 24 [facility] Sodium 143 134 - 144 mmol/L [facility] Potassium 4.9 3.5 - 5.2 mmol/L [facility] Chloride 106 96 - 106 mmol/L [facility] Bicarbonate (CO2) 20 20 - 29 mmol/L [facility] Calcium 9.4 8.6 - 10.2 mg/dL [facility] Albumin 4.6 3.8 - 4.8 g/dL [facility] Phosphorus 2.6(L) 2.8 - 4.1 mg/dL [facility] Blood (Blood, Venous) 05/08/2024 9:28 AM EST 05/08/2024 Jasper Enriquez MD LAB BLOOD ORDERABLES Final Re sult [facility] [address] [place] [address] * (ABNORMAL) Iron Panel (Fe, TIBC, TSAT) (05/08/2024 9:27 AM EST) TIBC 244(L) 250 - 450 ug/dL [facility] UIBC 153 111 - 343 ug/dL [facility] Iron 91 38 - 169 ug/dL [facility] Iron Saturation (TSat) 37 15 - 55 % [facility] Blood (Blood, Venous) 05/08/2024 9:27 AM EST 05/08/2024 Sylvester Huang MD LAB BLOOD ORDERABLES Final Result [facility] [address] [place] [address] * BK virus, DNA, quantitative (05/08/2024 9:27 AM EST) [facility] BK VIRUS DNA, PCR Negative Negative IU/mL [facility] Comment: No BK DNA detected. The linear range of the assay is 22 - 100,000,000 IU/mL. Blood (Blood, Venous) 05/08/2024 9:27 AM EST 05/08/2024 us Sylvester Huang MD LAB BLOOD ORDERABLES Final Result Performing Organization Address [facility]/ZIP Co de Phone Number [facility] [address] [place] [address] * CMV DNA, quantitative, PCR (05/08/2024 9:27 AM EST) [facility] CMV Quant DNA PCR Negative Negative IU/mL [facility] Comment: No CMV DNA detected. The quantitative range of this assay is 200 to 1 million IU/mL. Log 10 CMV QN DNA Plasma CANCELED log10 IU/mL [facility] Comment: Unable to calculate result since non-numeric result obtained for component test. Result canceled by the ancillary. Blood (Blood, Venous) 05/08/2024 9:27 AM EST 05/08/2024 us Sylvester Huang MD LAB BLOOD ORDERABLES Edited Result - Final Performing Organization Address City/[facility]/ZIP Co de Phone Number [facility] [address] [place] [address] * Uric Acid (05/08/2024 9:27 AM EST) [facility] Uric Acid 7.5 3.8 - 8.4 mg/dL [facility] Comment:Therapeutic target f or gout patients: <6.0 Blood (Blood, Venous) 05/08/2024 9:27 AM EST 05/08/2024 Sylvester Huang MD LAB BLOOD ORDERABLES Final Result Performing Organization Address [facility]/ZIP Co de Phone Number [facility] [address] [place] [address] * Hemoglobin A1c (05/08/2024 9:27 AM EST) Hemoglobin A1C 5.5 4.8 - 5.6 % [facility] Comment: ? Prediabetes: 5.7 - 6.4 ? Diabetes: >6.4 ? Glycemic control for adults with diabetes: <7.0 Blood (Blood, Venous) 05/08/2024 9:27 AM EST 05/08/2024 Sylvester Huang MD LAB BLOOD ORDERABLES Final Result Performing Organization Address [facility] de Phone Number [facility] [address] [place] [address] * (ABNORMAL) Ferritin (05/08/2024 9:27 AM EST) Pathologist [facility] Ferritin 780(H) 30 - 400 ng/[facility] Blood (Blood, Venous) 05/08/2024 9:27 AM EST 05/08/2024 Sylvester Huang MD LAB BLOOD ORDERABLES Final Result Performing Organization Address [facility] Co de Phone Number [facility] [place] [address] * (ABNORMAL) Basic Metabolic Panel (05/08/2024 9:27 AM EST) Glucose 96 70 - 99 mg/dL [facility] BUN 34(H) 8 - 27 mg/dL [facility] Creatinine 2.08(H) 0.76 - 1.27 mg/dL [facility] eGFR CKD-EPI CR 2020 32(L) >59 mL/min/1.7 3 [facility] BUN/Creatinine Ratio 16 10 - 24 [facility] Sodium 140 134 - 144 mmol/L [facility] Potassium 5.0 3.5 - 5.2 mmol/L [facility] Chloride 104 96 - 106 mmol/L [facility] Bicarbonate (CO2) 21 20 - 29 mmol/L [facility] Calcium 9.3 8.6 - 10.2 mg/dL [facility] Blood (Blood, Venous) 05/08/2024 9:27 AM EST 05/08/2024 us Sylvester Huang MD LAB BLOOD ORDERABLES Final Result [facility] [address] [place] [address] from Last 3 Months Insurance [facility] Care Teams Office Machine Repair Shop Supervisor Relationship Specialty Start Date End Date Maria Victoria Landry MD [address] [place] [address] [phone] PCP - General Internal Medicine 03/27/24
--- OUTSIDE RECORDS SUMMARY | 2024-07-07 13:24 | XMS_ITS | Clinical Summary ---
Author Organization [facility] Address [address] [place] [address] Care Team Providers Care E Business Manager Name Role Phone Naman Dinh MD Primary Care Provider Social History Tobacco Use Types Packs/Day Years Used Date Smoking Tobacco: Never Assessed Sex and Gender Information Value Date Recorded Sex Assigned at Male 11/17/2023 3:30 PM EDT Gender Identity Male 11/17/2023 3:30 PM EDT Sexual Orientation Heterosexual (straight) 11/16 3:32 PM EDT Plan of Treatment Health Maintenance Due Date Last Done Comments Hepatitis C Virus Screening 1945 DTaP/Tdap/Td Vaccines (1 - Tdap) 1965 Pneumococcal Vaccines 50+ (1 of 2 - PCV) 1965 Hepatitis B Vaccines (1 of 3 - Risk Dialysis 4-dose series) 1966 Zoster (Shingles) Vaccine (1 of 2) 1996 RSV Vaccine 60 years and old er and Patients (1 - 1-dose 75+ series) 2021 Influenza Vaccine 11/04/2023 COVID-19 Vaccine (2023- season) 2023 02/13/2021, 05/23/2020, 04/23/2020 Care Teams E Business Manager Relationship Specialty Start Date End Date Naman Dinh MD [address] [place] [address] PCP - General Nephrology 10/04/23
--- OUTSIDE RECORDS SUMMARY | 2024-07-07 13:24 | XMS_ITS | Encounter Summary ---
Author Organization [facility], Address [address] [place] [address] Phone Care Team Providers Care Mechanical Ordnance Assembler Name Role Phone Maria Victoria Landry MD Primary Care Provide r Encounter Details Date Type Department Care Team (Late st Contact Info) Description 09/05/2019 Telephone [facility] - [facility] [address] [place] [address] [address] Social History Tobacco Use Types Packs/Day Years Used Date Smoking Tobacco: Never Alcohol Use Standard Drinks/Week Comments Never 0 (1 standard drink = 0.6 oz [...] on file Sexual Orientation Not on file COVID-19 Exposure Response Date Recorded In the last month, have you been in contact with someone who was confirmed or suspected to have Coronavirus / COVID-19? Unable to assess 08/31/2019 12:52 PM EDT documented as of this encounter Plan of Treatment Upcoming Encounters Date Type Department Care Team (Late st Contact Info) Description 09/26/2024 9:15 AM EDT Office Visit [facility] [address] [phone] Sylvester Huang MD [address] [phone] documented as of this encounter Visit Diagnoses Not on filedocumented in this encounter Care Teams Mechanical Ordnance Assembler Relationship Specialty Start Date End Date Maria Victoria Landry MD [address] [place] [phone] PCP - General Internal Medicine 03/27/24 documented as of this encounter
--- OUTSIDE RECORDS SUMMARY | 2024-07-07 13:24 | XMS_ITS | Encounter Summary ---
Author Organization [facility] Address [address] [phone] Phone Care Team Providers Care Home Care Nurse Name Role Phone Maria Victoria Landry MD Primary Care Provide r Encounter Details Date Type Department Care Team (Late Contact Info) Description 06/30/2024 Orders Only [facility] [address] [phone] Sylvester Huang MD [address] [phone] Kidney transplant status Social History Tobacco Use Types Packs/Day Years [...] on file Sexual Orientation Not on file documented as of this encounter Plan of Treatment Upcoming Encounters Date Type Department Care Team (Late Contact Info) Description 09/26/2024 9:15 AM EDT Office Visit [facility] [address] [phone] Sylvester Huang MD [address] [phone] documented as of this encounter Visit Diagnoses Diagnosis Kidney transplant status documented in this encounter Care Teams Home Care Nurse Relationship Specialty Start Date End Date Maria Victoria Landry MD [address] [place] [phone] PCP - General Internal Medicine 03/27/24 documented as of this encounter
--- NOTE | 2024-07-10 09:09 | OP_ITS ---
SURGEON: Andrew Nowak MD PREOPERATIVE DIAGNOSIS: POSTOPERATIVE DIAGNOSIS: Postoperative hyphema with intraocular lens dislocation anteriorly. PROCEDURE PERFORMED: Anterior chamber washout with intraocular lens repositioning. ESTIMATED BLOOD LOSS: COMPLICATIONS: ANESTHESIA: ASSISTANTS: SPECIMENS: INDICATION FOR SURGERY: Postoperative hyphema with intraocular lens dislocation anteriorly. DESCRIPTION OF PROCEDURE: After obtaining informed consent, the patient was brought to the operating room suite and placed in supine position. After adequate sedation per anesthesia, the right eye was prepped and draped in usual sterile fashion. Attention was directed superiorly where the superior bleb was opened to gain access to the previously placed sclerotomy site. Suture was placed through the sclerotomy site followed by placement of viscoelastic in attempt to reposition the intraocular lens. The automated aspiration and irrigation was then utilized to give washout the anterior chamber bleb. The lens shifted posteriorly back into the capsule posterior to the iris. Viscoelastic was then instilled into the anterior chamber followed by placement of 9-0 suture through the sclerotomy site. Attention was directed to the conjunctiva which was closed with 9-0 pledgeted Vicryl suture. Vigamox was instilled intracamerally 0.1 mL. The patient tolerated the procedure well and will be seen in followup. MD MEERA Seo/GARCÍAL / [id number] MTDD
[2024-07-10 10:16] VITALS: BMI 25.3
[2024-07-10 10:29] VITALS: BP 143/102; PULSE 63; RESP 16; TEMP 36.7; O2SAT 98
--- NOTE | 2024-07-10 10:36 | P.CONAN_ITS ---
HPI - Anesthesia Eval Consult details Narrative: 79 yo M presenting for right cataract IOL reposition [facility] Past Medical History Medical History (Updated 07/10/24 @ 10:14 by Lucinda Mcghee RN) FHx: total knee replacement Bilateral cataracts TIA (transient ischemic attack) Neuropathy of foot PAF (paroxysmal atrial fibrillation) HTN (hypertension) Hyperlipidemia Wears hearing aid Gout Chronic renal insufficiency BPH (benign prostatic hyperplasia) Barretts esophagus AAA (abdominal aortic aneurysm) without rupture Family History Family history of problems with anesthesia: No Surgical History Surgical History (Updated 07/10/24 @ 10:13 by Lucinda Mcghee RN) History of surgery Hx of kidney transplant H/O colonoscopy History of Problems with Anesthesia: No Social History Social History Patient Tobacco Use Status: Former Tobacco user Tobacco use type: Cigarette Use of substances other than those prescribed or required for medical reasons: No Advance Directives: No Advance Directives Information Provided: Yes Poor oral hygiene: No Meds Allergies Allergy/AdvReac Type Severity Reaction Status Date / Time meperidine [Demerol] Allergy Intermediate Itching Verified 07/03/24 10:36 Active Medications: Current Medications Povidone Iodine (Povidone Iodine 5 % Ophth Soln 30 Ml Bottle) 1 appl EYE-RIGHT PREOP PRN PRN Reason: Pre-Op Surgical Implant Prophy Home Medications ?Medication ?Instructions ?Recorded ?Confirmed ?Last Taken ?Type amlodipine 5 mg tablet 10 mg PO DAILY 06/27/24 06/27/24 07/10/24 History apixaban 5 mg tablet (Eliquis) 5 mg PO BID 06/27/24 06/27/24 07/09/24 History atorvastatin 20 mg tablet 20 mg PO DAILY 06/27/24 06/27/24 Unknown History cholecalciferol (vitamin D3) 50 50 mcg PO DAILY 06/27/24 06/27/24 Unknown History mcg (2,000 unit) capsule (Vitamin D3) cinacalcet 30 mg tablet 60 mg PO DAILY 06/27/24 06/27/24 07/03/24 08:30 History metoprolol succinate 25 mg 50 mg PO DAILY 06/27/24 06/27/24 07/10/24 History tablet,extended release 24 hr ropinirole 1 mg tablet 1 mg PO BEDTIME 06/27/24 06/27/24 Unknown History sildenafil 100 mg tablet 100 mg PO DAILY PRN Erectile 06/27/24 06/27/24 Unknown History Dysfunction spironolactone 25 mg tablet 25 mg PO QAM 06/27/24 06/27/24 Unknown History tacrolimus 1 mg capsule, 1 mg PO BID 06/27/24 06/27/24 07/03/24 08:30 History immediate-release tamsulosin 0.4 mg capsule 0.4 mg PO DAILY 06/27/24 06/27/24 Unknown History trazodone 50 mg tablet 50 mg PO BEDTIME 06/27/24 06/27/24 Unknown History empagliflozin 10 mg tablet 10 mg PO DAILY 06/30/24 06/30/24 07/07/24 History (Jardiance) Exam Exam Date and Time: 07/10/24 1030 Height,Weight and Vital Signs: Height 6 ft 1 in Weight 86.9 kg Last Vital Signs Temp 98.0 F 07/10/24 10:29 Pulse 63 07/10/24 10:29 Resp 16 07/10/24 10:29 BP 143/102 H 07/10/24 10:29 Pulse Ox 98 07/10/24 10:29 O2 Del Method Room Air 07/10/24 10:29 Airway Mallampati Class: II TM Dist: >3cm Neck ROM: Full Partial: Upper (upper bridge; not removeable) Heart: S1S2 Lungs: CTAB Assessment and Plan Assessment Anesthesia Assessment: Anesthesia Plan Discussed and Chart Reviewed Final Anesthetic Review Family History of Problems with Anesthesia: No History of Problems with Anesthesia: No NPO: Yes ASA Class: II Final Preanesthetic Review: No Changes in Pt Med Stat, Meds/Allgs Chart Reviewed, Consent Obtained/Reviewed and Anes Risks/Benef Reviewed Patient Risk: Low Procedure Risk: Low Anesthetic Plan Anesthetic Plan: MAC: and Agree w/ Assess. and Plan Disposition: Standard PACU
[2024-07-10] MEDS: Lactated Ringers 500 ML 50 ML IVCONT (10:47)
--- NOTE | 2024-07-10 10:51 | MHC.SHP ---
Pre-Procedural Eval Section A - 24 Hr Update-Section A only Date of Service: 07/10/24 The patient is an INPATIENT: No Changes since office visit: No Cold of Flu in the past 2 weeks, No New Medical Problems, No Changes in Medication and No Patient answered all questions The patient has been examined within 24 hours of the surgical procedure. The History & Physical has been completed within 30 days and I have reviewed it.: Yes Section B - Complete if H&P > 30 days Chief Complaint: Other specified complication of other internal pro Allergies: Allergies Allergy/AdvReac Type Severity Reaction Status Date / Time meperidine [Demerol] Allergy Intermediate Itching Verified 07/03/24 10:36 Plan Diagnosis/Plan: Unchanged I have reviewed the history and physical and performed a pertinent physical examination on my patient. No changes have occurred unless specified. Time Spent With Patient Time: Total time managing care of this patient today ____ minutes.
[2024-07-10 11:48] VITALS: BP 149/90; PULSE 59; RESP 16; TEMP 36.4; O2SAT 99
== END 2024-07-10 12:01 | disposition home or self-care (01) ==
PROVIDERS: PCP Internal Medicine; Visit Provider Ophthalmology
PROC: (CPT 66985; principal; 2024-07-10 13:00)
DX: T85.22XA Displacement of intraocular lens, initial encounter (principal); Z96.1 Presence of intraocular lens; Y77.2 Prosthetic and other implants, materials and accessory ophthalmic devices associated with adverse incidents; I12.9 Hypertensive chronic kidney disease with stage 1 through stage 4 chronic kidney disease, or unspecified chronic kidney disease; N18.9 Chronic kidney disease, unspecified; Z94.0 Kidney transplant status; I48.91 Unspecified atrial fibrillation; E78.00 Pure hypercholesterolemia, unspecified; Z87.891 Personal history of nicotine dependence; Z88.5 Allergy status to narcotic agent; Z79.01 Long term (current) use of anticoagulants; Z79.899 Other long term (current) drug therapy
CPT/HCPCS: 66825; J2250; J3010